=== PATIENT | male | born 1965 | race African-American/Black ===

== ENCOUNTER 2018-11-17 18:04 | Emergency (ER) | payer SELFPAY ==
[~2018-11-17] VITALS: Ht 170.2 cm; Wt 105.0 kg
[2018-11-17 18:19] VITALS: BP 167/96
== END 2018-11-17 20:56 | disposition left against medical advice (07) ==
LOC: ER 18:29
DX: Z53.21 Procedure and treatment not carried out due to patient leaving prior to being seen by health care provider (principal)